=== PATIENT | female | born 1960 | race Caucasian/White ===

== ENCOUNTER 2025-09-05 20:34 | Inpatient (IN) | payer BC, SELFPAY ==
[2025-09-05] VITALS (9 sets, daily range): BP systolic 166–213; BP diastolic 69–111; BMI 21.4
[2025-09-05 14:20] LABS: Hematocrit 37.4 % (37.0-47.0); Hemoglobin 13.7 g/dL (12.0-16.0); Mean Corp Hgb Conc. 36.6 g/dL (33.0-37.0); Mean Corpuscular Volume 90.1 fL (81.0-99.0); Nucleated Red Blood Cells % 0 %; Platelet Count 234 10^3/uL (130-400); Red Cell Dist. Width 11.4 % (11.5-14.5)
[2025-09-05 14:34] LABS: ALT (SGPT) 28 U/L (0-35); AST (SGOT) 28 U/L (14-36); Albumin 4.6 g/dl (3.5-5.0); Alkaline Phosphatase 79 U/L (38-126); Blood Urea Nitrogen 30 mg/dl (7-17); Calcium 9.3 mg/dl (8.4-10.2); Carbon Dioxide 26 mmol/L (22-30); Chloride 97 mmol/L (98-107); Glucose 324 mg/dl (70-99); Lipase 189 U/L (23-300); Potassium 3.1 mmol/L (3.5-5.1); Sodium 134 mmol/L (135-145); Total Protein 7.7 g/dl (6.3-8.2); eGFR 56.81
[2025-09-05 14:48] LABS: Troponin I 0.066 ng/ml
--- NOTE | 2025-09-05 16:26 | ED.GENMED ---
History of Present Illness
General
Chief Complaint: Chest Pain
Source: patient and family
Time Seen by Provider: 09/05/25 16:09
History of Present Illness
History of Present Illness:
This patient is a 64-year-old female presents emergency department with nausea, intractable nonbloody vomiting that started on Monday and continuous. She also has associated dizzy nests with this that is worse when she opens her eyes or moves her
head a certain way. She has difficulty defining what dizziness feels like, but since it began on Monday she has been unable to walk without assistance such as a walker because of this extent of dizziness. She was seen in the emergency department
at [facility] and noted to have elevated blood pressure when the symptoms began on Monday. She was given an antiemetic, her blood pressure gradually came down and she was discharged. She then returned to the hospital on Monday and was admitted
for what the sister describes as 30 hours, given IV fluids, and went home. Her symptoms continued and she saw her primary care doctor on Monday. At that time her blood pressure was lower than normal and it was recommended that she be
hospitalized but she declined. Yesterday she was able to tolerate some liquids and a small piece of pie but continues to have difficulty walking due to dizziness. Today, her nausea and vomiting resumed associated with continued dizziness. Patient
states she has had discomfort across the front of her chest since Monday that is continuous, without exacerbating relieving factors. This pain does not radiate. She has a history of chronic right sided intermittent jaw pain, TMJ workup has been
unremarkable in the past. That is unchanged. Patient denies diaphoresis, numbness, tingling, diplopia, dysarthria, dysphagia, focal weakness, visual changes, or other complaints.
Past History
Past History
ED Past Medical History: Other (Hypertension, diabetes)
ED Past Surgical History: Cholecystectomy and Gynecological
Social History
Tobacco: Non-smoker
Alcohol: Occasional
Drug: None
Living: with family
Phy Exam
Physical Exam
Physical Exam:
GENERAL: Alert , appears very nauseous, resting with eyes closed
EYE: pupils equal and reactive, no photophobia, EOMI, no nystagmus
NECK: Supple, no significant adenopathy.
ENT: o/p clr, mmm.
CARDIAC: Regular rate and rhythm .
LUNGS: Clear breath sounds bilaterally, no acute respiratory distress, no wheezes/rales/rhonchi
ABDOMEN: Soft, without focal tenderness, no r/g, no cvat
NEUROLOGICAL: Alert and oriented, no focal neuro deficits, unable to tolerate Hallpike exam due to severe dizziness with change in head position, [id number] normal, cranial nerves II through XII intact, motor 5 out of 5, sensory intact to light
touch
SKIN: Warm and dry, skin intact.
MUSCULOSKELETAL: No edema, well perfused.
PSYCH: Normal and appropriate interaction.
Scores
Heart Score for Chest Pain Patients
STEMI patient?: Not applicable
Course
Orders/Labs/Results
Orders:
Orders
09/05/25 13:32
Electrocardiogram (*1) Urgent
Reason for Study: Chest Pain
09/05/25 14:01
IV Insert/Care/Rem.- Treatment PRN
09/05/25 14:10
Complete Blood Count/With Diff Urgent
Comprehensive Metabolic Panel Urgent
Lipase Urgent
Troponin I Urgent
09/05/25 Dinner
Regular
At Your Request: Full Participation
09/05/25 16:25
CT Head & Neck Angio W/wo IV Urgent
Comment:
Reason For Exam: severe dizzy/n/v
09/05/25 16:51
Aspirin 325 mg PO NOW STA
Labetalol HCl [Trandate] 10 mg IV NOW STA
09/05/25 16:54
Lorazepam [Ativan] 1 mg IV NOW STA
09/05/25 17:00
0.9% Sodium Chloride 1000 ml [Nss] 1,000 ml IV BOLUS
09/05/25 18:25
Troponin I Urgent
09/05/25 20:05
Admit/Transfer Patient As Directed
Co-Sign Provider:
Level of Care: Inpatient admission
Assign to:: Telemetry
Physician / Group: gerber
Diagnosis: vertigo
Reason for Telemetry: Arrhythmia
Date to Stop Telemetry: 09/08/25
Time to Stop Telemetry: 11:00
Reason for Hospitalization: vertigo
Expected length of stay greater than two midnights?: Yes
ELOS- Estimated Length of Stay in days: 2
I certify the patient meets the requirements for IP care: Yes
PRN Pain Medication Management As Directed
May give lesser potent ordered pain med per pt: Yes
preference::
Protocol:: Medication orders for pain may be administered in a
manner that supports deferring to patient preference
when the pt is:
- Requesting an ordered lesser potent pain medication.
Least to most potent pain medications are defined
as: acetaminophen < NSAID < tramadol < opioids
(morphine, oxycodone, hydromorphone).
- Requesting a lesser dose of the same medication IF
ORDERED.
- Requesting a less intrusive route of administration
if both routes are prescribed by the provider (PO <
IV).
09/05/25 20:06
Code Status As Directed
Resuscitation Status: Full Code
09/05/25 20:09
Amlodipine [Norvasc] 2.5 mg PO STAT STA
09/05/25 20:11
HydrALAZINE [Apresoline] 10 mg IV NOW STA
09/05/25 20:12
Potassium Chloride [KCl] 40 meq PO NOW STA
09/05/25 20:15
CR Chest - 2 Views Urgent
Comment:
Reason For Exam: cough
09/05/25 22:00
Famotidine [Pepcid] 20 mg PO HS
09/05/25 23:48
Troponin I Q6H
Dextrose 50%-Water [Dextrose 50% Syringe] 12.5 grams IV [id number] PRN
Glucagon [GlucaGen] 1 mg IM PRN PRN
Ondansetron Injectable [Zofran] 4 mg IV Q6HPRN PRN
09/05/25 23:48
Hemoglobin A1c [Glycohemoglobin (HgbA1c)] Routine
Lipid Profile [Cardiovascular Evaluation] Routine
Activity As Directed
Activity Level: As Tolerated
Bedside Glucose Monitoring As Directed
Frequency: AC&HS
Additional Instructions:: Change to q6h if pt on TPN, tube feeding or not eating
Neurological Checks As Directed
Frequency: Per unit guidelines
Pneumatic Compression Sleeves As Directed
Type: Knee high
Vital Signs As Directed
Frequency: Per unit guidelines
DX Deep Vein Thrombosis Video Routine
09/05/25 23:52
Cyclobenzaprine HCl [Flexeril] 5 mg PO TIDPRN PRN
09/06/25 05:50
Comprehensive Metabolic Panel IN AM
Troponin I Q6H
09/06/25 05:51
Complete Blood Count/With Diff IN AM
09/06/25 07:30
Insulin Aspart Corrective Low [Novolog Flexpen-Low Resistance] See Protocol SC AC
09/06/25 08:00
Amlodipine [Norvasc] 2.5 mg PO DAILY
Aspirin Chewable [Low Strength Aspirin] 81 mg PO DAILY
Bupropion(24Hr)Extended Releas [WELLBUTRIN XL (24 hour extended release)] 300 mg PO DAILY
Pantoprazole [Protonix] 20 mg PO DAILY
Rosuvastatin Calcium [Crestor] 5 mg PO DAILY
09/06/25 13:04
Troponin I Q6H
09/08/25 11:00
DC Protocol for Telemetry ONCE
Abnormal Lab Results
09/05/25 09/05/25
14:10 18:25
RBC 4.15 L 10^6/uL
(4.20-5.40)
MCH 33.0 H pg
(27.0-31.0)
RDW 11.4 L %
(11.5-14.5)
MPV 10.5 H fL
(7.4-10.4)
Absolute Neuts (auto) 8.6 H 10^3/uL
(1.4-6.5)
Absolute Lymphs (auto) 0.7 L 10^3/uL
(1.2-3.4)
Neutrophils % 87.8 H %
(42.2-75.2)
Lymphocytes % 7.3 L %
(20.5-51.1)
Sodium 134 L mmol/L
(135-145)
Potassium 3.1 L mmol/L
(3.5-5.1)
Chloride 97 L mmol/L
(98-107)
BUN 30 H mg/dl
(7-17)
Creatinine 1.1 H mg/dL
(0.6-1.0)
Glucose 324 H mg/dl
(70-99)
Troponin I 0.066 H* ng/ml 0.062 H* ng/ml
09/05/25 14:10
09/05/25 14:10
Vital Signs
Initial and Last Documented VS:
Initial Vital Signs
Temp Pulse Resp BP Pulse Ox
98.5 F 96 18 213/111 100
09/05/25 13:54 09/05/25 13:54 09/05/25 13:54 09/05/25 13:54 09/05/25 13:54
Last Documented Vital Signs
Temp Pulse Resp BP Pulse Ox
98.3 F 79 18 148/72 95
09/08/25 11:30 09/08/25 11:30 09/08/25 11:30 09/08/25 11:30 09/08/25 11:30
*Pulse Oximetry
SaO2: 100
Oxygen Mode of Delivery: Room air
Patient hypoxic: no
*Critical Care Note
Total Time (30-74mins, 75-104mins- exclusive of procedures): 30
Update Note
Update Note:
Patient presents to the Emergency Department with
Number and Complexity of Problems Addressed at the Encounter
� Chronic conditions affecting care:
� Acute Exacerbation and/or Progression of Chronic Illness:
� Differential Diagnosis includes:
Amount and/or Complexity of Data to be Reviewed and Analyzed
� I performed an independent evaluation of and my interpretation is:
EKG:read by me, nsr, nonspec st/t abnl, no acute ischemia
CT:No evidence of acute intracranial abnormality.
No evidence for hemodynamically significant narrowing involving the common carotid arteries, carotid bulbs, or proximal internal carotid arteries bilaterally.
Focal calcification at the junction of the left cavernous ICA and the supraclinoid ICA, and is suspicious for focal greater than 50% diameter reduction.
Focal calcification at the junction of the right cavernous ICA and the supraclinoid right ICA, likely less than 50% diameter reduction.
Focal calcification involving the V4 portion of the left vertebral artery and appears to result in diameter reduction of approximately 50%, and could represent a hemodynamically significant stenosis.
If there are persistent clinical symptoms, consideration for further evaluation with MRI of the brain.
Family Protection Specialist reconstructed images have been sent to the PACS system.
Percent stenosis is calculated using NASCET criteria.
If the patient has emphysema, patient should be assessed for an annual low dose lung cancer CT program, as pulmonary emphysema is an independent risk factor for lung cancer.
Xrays:
Laboratory Studies:mild hypoK, mild renal insuffic/prerenal azotemia, nonspec trop elevation.
Other:
� Review of other/old records reveals:
� Clinical information was obtained by an independent historian:sister and father who are at bedside, much of hx via sister given pt's n/v initially
� Prescriptions/Medications Considered but not given:
� Further testing considered but not performed:
Risk of Complications and/or Morbidity or Mortality of Patient Management
� Social determinants of health affecting care:
� Discussion with other providers (PCP, Hospitalists, Consultants, etc):
� Escalation of care including admission/observation vs risk of discharge considered:457 pm CP resolved. Getting meds now for sxs, bp noted, labetalol ordered, will follow closely, ct pending.
521 repeat sbp 184, pt resting comfortably, no cp, no vomiting. We are calling ct to expedite
722 pm multiple reassessments, no cp, no nnew sxs. she feels much better, no further v. Concern regarding dizzy/n/v and consideration for post circ process...CT suggests V4 LVA stenosis (not amenable to acute itnervention, NIH=0), associ with
hypertensive urgency and nonspec flat troponin. Case d/w Dr Pulido for admission, tele monitoring, likely MR, etc.
ED Attending Note
-
Portions of this chart may have been created with voice recognition software.� Occasional wrong word or��sound alike� substitutions may have occurred due to the inherent limitations of voice recognition software.
Discharge Plan
Departure
Patient Disposition: Admit
Date of Disposition: 09/05/25
Time of Disposition: 19:23
Admit to: Telemetry
Admit to doctor: lamont
Presentation/result/management discussed w/ accepting MD/DO: Hospitalist
Condition: Fair
Discharge Problem:
Hypertensive urgency, Vertigo
Interventions
Interventions:
*Risk Screen - Suicide Last Done: 09/05/25 13:54
*General Assessment Last Done: 09/05/25 13:54
*Neglect/Abuse Screening Last Done: 09/05/25 16:09
*ED- Fall Risk Assessment Last Done: 09/05/25 16:10
*ED COVID-19 Vaccine History Last Done: 09/05/25 16:10
*ED Influenza Vaccine History Last Done: 09/05/25 16:27
*Nursing Disposition Last Done: 09/05/25 23:47
TR-Bnuucl-Ifavdxykaf Assessment Last Done: 09/05/25 16:17
ED- Cardiac Assessment Last Done: 09/05/25 16:16
Discharge Date and Time
Discharge Date/Time: 09/05/25 23:48
[2025-09-05] MEDS: ATIVAN 1 MG IV (16:57)
[2025-09-05] MEDS: TRANDATE 10 MG IV (16:57)
[2025-09-05] MEDS: NSS 1000 IV (16:58)
[2025-09-05] MEDS: ASPIRIN 325 MG PO (17:27)
[2025-09-05 19:01] LABS: Troponin I 0.062 ng/ml
--- NOTE | 2025-09-05 20:13 | HPS.HSE ---
Addendum entered and electronically signed by Yanet Frank MD 09/05/25 20:17:
Check chest x-ray to rule out aspiration due to ongoing dry cough and shortness of breath.
Original Note:
Family Physician
-
Family Physician: INTERVIEWE UNKNOWN - PT NOT
Chief Complaint
-
vertigo
History of Present Illness
64-year-old female past medical history of hypertension, diabetes, anxiety/depression, GERD, presenting with nausea, intractable nonbloody vomiting that started 6 days ago but was ongoing intermittently for the past year even before that. She has
also been dizzy/vertigo starting 6 days ago which is worse when she opens her eyes or moves her head a certain way. She was seen in the emergency room at [place] was noted to have elevated blood pressure and the when the symptoms started 6 days
ago. She was given antiemetic and her blood pressure gradually came down and she was discharged. She did not return to the hospital in the next day and was admitted for 30 hours given IV fluids and was discharged. She saw the primary care
physician 3 days later. Her blood pressure at that time was very low at that time and she was recommended to be hospitalized but she declined. Yesterday she was able to tolerate some liquids and small piece of pie but continues to have difficulty
with walking due to dizziness. Today her nausea and vomiting returned with continued dizziness. Denies ringing in the ears or hearing loss. She has also been having headache.
She has discomfort across the front of her chest described as pressure for the past 6 days that is continuous and worse with cough or vomiting. Pain radiates up to her jaw. Pain does not radiate anywhere. She also has cough that is dry. Has not
been eating much due to vomiting. Also having abdominal pain.
He has a history of chronic right-sided intermittent jaw pain, she has had unremarkable TMJ workup in the past. She denies swelling, numbness tingling, visual disturbances, difficulty speaking, difficulty swallowing, visual changes.
Yesterday she was noted to be staring off and unresponsive. No facial droop or slurred speech at any time.
He denies smoking or alcohol or drugs.
She does have family members with heart disease.
Medical History
Past Medical History
Past Medical History: Reports Other (hypertension, diabetes, anxiety/depression, GERD)
Past Surgical History: Reports None
Social History
Tobacco: Non-smoker
Alcohol: None
Drug: None
Family History
Family History: Not pertinent
Allergies / Home Medications
Allergies reflects when Allergies were last updated in [employer].
Home Medications with original date entered in [employer]
Allergy/Medication List:
Allergies
Allergy/AdvReac Type Severity Reaction Status Date / Time
No Known Allergies Allergy Verified 09/05/25 16:36
Home Medications
amlodipine 2.5 mg tablet 2.5 mg PO DAILY 09/05/25
bupropion HCl 300 mg 24 hr tablet, extended release 300 mg PO DAILY 09/05/25
cyclobenzaprine 5 mg tablet 5 mg PO TIDPRN PRN muscle spasm 09/05/25
famotidine 20 mg tablet 20 mg PO HS 09/05/25
lisinopril 5 mg tablet 5 mg PO DAILY 09/05/25
ondansetron 4 mg disintegrating tablet 4 mg PO Q6H PRN nausea 09/05/25
pantoprazole 20 mg tablet,delayed release 20 mg PO DAILY 09/05/25
rosuvastatin 5 mg tablet (Crestor) 5 mg PO DAILY 09/05/25
tirzepatide 10 mg/0.5 mL subcutaneous pen injector (Mounjaro) 10 mg SC WE@0800 09/05/25
Review of Systems
-
History Source: Patient
A 12 point ROS was completed and negative except as noted: Yes
Constitutional: Reports No Symptoms
EENT: Reports No Symptoms
Respiratory: Reports No Symptoms
Cardiac: Reports See HPI
Abdomen/GI: Reports No Symptoms
: Reports No Symptoms
Musculoskeletal: Reports No Symptoms
Skin: Reports No Symptoms
Neurological: Reports See HPI
Endocrine: Reports No Symptoms
Hematologic/Lymphatic: Reports No Symptoms
Psych: Reports No Symptoms
Physical Exam
Vital Signs
Vital Signs
Temp Pulse Resp BP Pulse Ox
97.6 F 82 16 190/86 100
09/05/25 19:50 09/05/25 19:00 09/05/25 19:00 09/05/25 19:00 09/05/25 16:45
Physical Exam
General: Well Developed, Well Nourished and No Apparent Distress
HEENT: NormoCephalic, Moist mucous membranes and Atraumatic
Respiratory: Clear
Cardiac: S1/S2 and Regular Rhythm; No Murmur or Rub
GI: Soft, Non Tender, Non Distended and Normal Bowel Sounds; No Organomegaly
Rectal: Deferred by Provider
Musculoskeletal: No Clubbing, No Cyanosis and No Edema
Skin: No Rash
Neuro: Nonfocal/grossly intact
Laboratory Results
-
09/05/25 14:10
09/05/25 14:10
Laboratory Results
Total Bilirubin 0.9 mg/dl (0.2-1.3) 09/05/25 14:10
AST 28 U/L (14-36) 09/05/25 14:10
ALT 28 U/L (0-35) 09/05/25 14:10
Alkaline Phosphatase 79 U/L (38-126) 09/05/25 14:10
Troponin I 0.062 ng/ml H* 09/05/25 18:25
Lipase 189 U/L (23-300) 09/05/25 14:10
Data Reviewed
-
Lab Data: Labs Reviewed by me
Old Records: Reviewed
Impression/Plan
-
IMPRESSION:
PLAN:
# Vertigo associate with nausea/vomiting concerning for CVA
- CTA head and neck shows focal calcification at the junction of the right cavernous ICA and supraclinoid right ICA less than 50% diameter reduction, focal calcification following V4 portion of the left vertebral artery and appears to result in
diameter reduction of approximately 50% which could represent hemodynamically significant stenosis
- Check MRI brain
-Telemetry
-Out of window for TNK or any intervention
-Aspirin started
-Check A1c and lipid panel
- Neurology consulted
# Hypertensive emergency
# Essential hypertension
- IV labetalol without improvement in blood pressure, continue and add as needed hydralazine as well
- Hold lisinopril for now given recent hypotension
- Resume amlodipine will give dose now
# Chest pressure likely secondary to hypertension
# Nonischemic myocardial injury secondary to hypertension versus rule out ACS
- Troponin 0.066, decreased to 0.062
- EKG shows normal sinus rhythm, ST depressions in leads V3
- Check echo.
- Consider cardiology if worsening troponins
# Hyperglycemia
Type 2 diabetes
- On Mounjaro
- Check A1c
- Insulin sliding scale
# Hypokalemia secondary to vomiting
- Replete potassium
# KIRSTIE versus CKD
- No prior renal function for comparison
- Hold lisinopril and monitor
Anxiety/depression
- Continue bupropion
GERD
- Continue famotidine, pantoprazole
Full code
DVT prophylaxis�SCDs
Regular diet
[2025-09-05] MEDS: NORVASC 2.5 MG PO (20:50)
[2025-09-05] MEDS: KCL 40 MEQ PO (20:53)
[2025-09-05] MEDS: APRESOLINE 10 MG IV (20:55)
[2025-09-05] MEDS: PEPCID 20 MG PO (22:36)
[2025-09-05] MEDS: FLUSH (NSS) 1 FLUSH IV (22:38)
[2025-09-06] VITALS (7 sets, daily range): BP systolic 94–124; BP diastolic 53–64; BMI 22.7
[2025-09-06] MEDS: ZOFRAN 4 MG IV
[2025-09-06 00:11] LABS: Glucose - Point of Care 234 mg/dl (70-99)
[2025-09-06 00:47] LABS: HDL Cholesterol 50 mg/dl; LDL Cholesterol, Calculated 67 mg/dl; Very Low Density Lipoprotein 17 mg/dl (0-30)
[2025-09-06 00:51] LABS: Troponin I 0.076 ng/ml
[2025-09-06 07:12] LABS: Hematocrit 36.7 % (37.0-47.0); Hemoglobin 12.9 g/dL (12.0-16.0); Mean Corp Hgb Conc. 35.1 g/dL (33.0-37.0); Mean Corpuscular Volume 90.6 fL (81.0-99.0); Nucleated Red Blood Cells % 0 %; Platelet Count 258 10^3/uL (130-400); Red Cell Dist. Width 11.6 % (11.5-14.5)
[2025-09-06 07:43] LABS: Troponin I 0.083 ng/ml
[2025-09-06 07:45] LABS: ALT (SGPT) 24 U/L (0-35); AST (SGOT) 22 U/L (14-36); Albumin 4.1 g/dl (3.5-5.0); Alkaline Phosphatase 67 U/L (38-126); Blood Urea Nitrogen 26 mg/dl (7-17); Calcium 9.0 mg/dl (8.4-10.2); Carbon Dioxide 33 mmol/L (22-30); Chloride 96 mmol/L (98-107); Estimated Creatinine Clearance 50 ml/min; Glucose 144 mg/dl (70-99); Potassium 3.2 mmol/L (3.5-5.1); Sodium 134 mmol/L (135-145); Total Protein 7.0 g/dl (6.3-8.2); eGFR 56.81
[2025-09-06 08:38] LABS: Glucose - Point of Care 139 mg/dl (70-99)
--- NOTE | 2025-09-06 08:43 | CON.NEURO4 ---
Consultation - Neurology 4
-
CONSULTING PHYSICIAN: Dr. Fabio Waldron
REFERRING PHYSICIAN: Dr. Nena Patel
DICTATED BY: Dr. Fabio Waldron
DATE/TIME OF REQUEST: 09/06/2025
DATE/TIME OF CONSULTATION: 09/06/2025
Reason for Consultation: Vertigo
ASSESSMENT AND PLAN:
The patient is a 64 years old female with a past medical history of hypertension, diabetes mellitus, anxiety, depression, GERD, who presented with complaint of nausea and intractable vomiting that started about 6 days ago prior to admission, but
according the patient it has been going on intermittently for about a year. The patient says that 6 days prior to admission her symptoms of dizziness which she explains as a 'spinning sensation', became worse and symptoms are precipitated by
movement of her head. The patient was seen in the ER at [place] about 6 days ago when the symptoms started, and she was noted to have elevated blood pressure. She was given antiemetic and her blood pressure gradually came down and she was
discharged. The patient symptoms of nausea vomiting and 'spinning sensation' became worse on 09/05/2025 and therefore she presented to the hospital.
. CT head does not show acute intracranial abnormality.
. CTA head/neck does not show a large vessel occlusion.
. MRI brain does not show an acute infarct. There is a moderate-sized central disc herniation at C3/C4 causing mild spinal cord compression and central canal stenosis. There is a small central disc herniation at C4/C5 causing mild spinal cord
compression and central canal stenosis.
The patient presented with a history of dizziness which she explains is like' spinning sensation' along with nausea and vomiting. The patient states that her symptoms have been going on for about a year. The patient symptoms got worse in last 6
days prior to admission therefore she presented to the hospital. MRI brain does not show an acute infarct, however there is a moderate-sized central disc herniation at C3/C4 causing mild spinal cord compression and central canal stenosis along with
a small central disc herniation at C4/C5 causing mild spinal cord compression and central canal stenosis.
Can try meclizine 12.5 mg 3 times daily as needed for vertigo.
. Recommend MRI of the cervical spine to rule out cord compression.
Discussed with Dr. Nena Patel.
History of Present Illness:
The patient is a 64 years old female with a past medical history of hypertension, diabetes mellitus, anxiety, depression, GERD, who presented with complaint of nausea and intractable vomiting that started about 6 days ago prior to admission, but
according the patient it has been going on intermittently for about a year. The patient says that 6 days prior to admission her symptoms of dizziness which she explains as a 'spinning sensation', became worse and symptoms are precipitated by
movement of her head. T
Past Medical History:
Hypertension
Diabetes mellitus
Anxiety
Depression
GERD
Review of Systems:
The 10 point review systems are negative aside from as given the above history of present illness.
Neurologic Examination:
Alert and oriented x 3
Speech is clear
Cranial nerves II to XII grossly intact
The motor strength is grossly 5/5 bilaterally
Sensations are grossly intact
The cerebellar examination does not show limb ataxia
Vital Signs and Labs
-
Vital Signs and Labs:
Vital Signs
Temp Pulse Resp BP Pulse Ox
36.8 C 91 18 119/64 100
09/06/25 03:45 09/06/25 03:45 09/06/25 03:45 09/06/25 03:45 09/06/25 03:45
Lab Results
09/06/25 05:51
09/06/25 05:50
Sodium 134 mmol/L (135-145) L 09/06/25 05:50
Potassium 3.2 mmol/L (3.5-5.1) L 09/06/25 05:50
BUN 26 mg/dl (7-17) H 09/06/25 05:50
Glucose 144 mg/dl (70-99) H 09/06/25 05:50
Calcium 9.0 mg/dl (8.4-10.2) 09/06/25 05:50
LDL Cholesterol, Calc 67 mg/dl 09/06/25 00:10
Medications
-
Active Medications
Generic Name Dose Route Start Last Admin
Trade Name Freq PRN Reason Stop Dose Admin
Amlodipine Besylate 2.5 mg 09/06/25 08:00
Amlodipine 2.5 Mg Tablet PO 10/04/25 07:59
DAILY NARGIS
Aspirin 81 mg 09/06/25 08:00
Aspirin 81 Mg Chewable Tablet PO 10/04/25 07:59
DAILY NARGIS
Bupropion HCl 300 mg 09/06/25 08:00
Bupropion (24hr) Extended Release 300 Mg Tablet PO 10/04/25 07:59
DAILY NARGIS
Cyclobenzaprine HCl 5 mg 09/05/25 23:52
Cyclobenzaprine 10 Mg Tablet PO 10/03/25 23:51
TIDPRN PRN
muscle spasm
Dextrose 12.5 grams 09/05/25 23:48
Dextrose 50% (0.5 Grams/Ml) 50 Ml Syringe IV 10/03/25 23:47
[id number] PRN
hypoglycemia
Protocol
Famotidine 20 mg 09/05/25 22:00 09/05/25 22:36
Famotidine 20 Mg Tablet PO 10/03/25 21:59 20 mg
HS NARGIS Administration
Glucagon 1 mg 09/05/25 23:48
Glucagon 1 Mg Vial IM 10/03/25 23:47
PRN PRN
hypoglycemia
Protocol
Insulin Aspart 0 units 09/06/25 07:30
Insulin Aspart Low Resistance 300 Units/3 Ml Pen.Injctr SC 10/04/25 07:29
AC NARGIS
Protocol
Ondansetron HCl 4 mg 09/05/25 23:48 09/06/25 00:00
Ondansetron 4 Mg/2 Ml Vial IV 10/03/25 23:47 4 mg
Q6HPRN PRN Administration
nausea and vomiting
Pantoprazole Sodium 20 mg 09/06/25 08:00
Pantoprazole 20 Mg Delayed Release Tablet PO 10/04/25 07:59
DAILY NARGIS
Rosuvastatin Calcium 5 mg 09/06/25 08:00
Rosuvastatin (Crestor) 5 Mg Tablet PO 10/04/25 07:59
DAILY NARGIS
Sodium Chloride 0 flush 09/05/25 22:00 09/05/25 22:38
Sodium Chloride 0.9% (Flush) Syringe IV 10/03/25 21:59 1 flush
PER PROTOCOL NARGIS Administration
Home Medications
�Medication �Instructions �Recorded
amlodipine 2.5 mg tablet 2.5 mg PO DAILY 09/05/25
bupropion HCl 300 mg 24 hr tablet, 300 mg PO DAILY 09/05/25
extended release
cyclobenzaprine 5 mg tablet 5 mg PO TIDPRN PRN muscle spasm 09/05/25
famotidine 20 mg tablet 20 mg PO HS 09/05/25
lisinopril 5 mg tablet 5 mg PO DAILY 09/05/25
ondansetron 4 mg disintegrating 4 mg PO Q6H PRN nausea 09/05/25
tablet
pantoprazole 20 mg tablet,delayed 20 mg PO DAILY 09/05/25
release
rosuvastatin 5 mg tablet (Crestor) 5 mg PO DAILY 09/05/25
tirzepatide 10 mg/0.5 mL 10 mg SC WE@0800 09/05/25
subcutaneous pen injector
(Mounjaro)
[2025-09-06] MEDS: NOVOLOG FLEXPEN-LOW RESISTANCE SC (08:50)
[2025-09-06] MEDS: PROTONIX 20 MG PO (08:55)
[2025-09-06] MEDS: NORVASC 2.5 MG PO (08:55)
[2025-09-06] MEDS: LOW STRENGTH ASPIRIN 81 MG PO (08:55)
[2025-09-06] MEDS: WELLBUTRIN XL (24 hour extended release) 300 MG PO (08:55)
[2025-09-06] MEDS: CRESTOR 5 MG PO (08:55)
[2025-09-06] MEDS: KCL 40 MEQ PO (08:56)
[2025-09-06 09:22] LABS: Glycohemoglobin (HgbA1c) 6.0 % (4.0-5.9)
--- NOTE | 2025-09-06 09:44 | W.PN.HOSP.TC ---
Today's Communication/Plan
-
see A/P
Assessment / Plan
Assessment / Plan
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
She was seen in the emergency room at [place] and was noted to have elevated blood pressure. She was given antiemetic and her blood pressure gradually came down and she was discharged.
She saw her PCP 3 days later. Her blood pressure at that time was very low and she was recommended to be hospitalized but she declined.
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
Her nausea and vomiting returned with continued dizziness.
Denies ringing in the ears or hearing loss. She has also been having headache.
She has discomfort across the front of her chest described as pressure for the past 6 days that is continuous and worse with cough or vomiting. Pain radiates up to her jaw. She also has cough that is dry. Has not been eating much due to vomiting.
Also having abdominal pain.
She has history of chronic right-sided intermittent jaw pain, she has had unremarkable TMJ workup in the past. She denies swelling, numbness tingling, visual disturbances, difficulty speaking, difficulty swallowing, visual changes.
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 No facial droop or slurred speech at any time.
Denies smoking or alcohol or drugs.
She does have family members with heart disease.
A/P:
# Nausea/vomiting with vertigo, concerning for CVA
CTA head and neck shows focal calcification at the junction of the right cavernous ICA and supraclinoid right ICA less than 50% diameter reduction, focal calcification following V4 portion of the left vertebral artery and appears to result in
diameter reduction of approximately 50% which could represent hemodynamically significant stenosis
Check MRI brain
Check echo
Cont telemetry
Out of window for TNK or any intervention
Aspirin started
A1c 6.0%,
LDL 67- cont Crestor
Neurology consulted
# Hypertensive emergency
# Essential hypertension
s/p IV labetalol, hydralazine as well
Cont Norvasc with holding parameter
Hold ANODE MACHINE OPERATOR lisinopril for now
# Chest pressure likely secondary to hypertension, Chest pressure has resolved
# Nonischemic myocardial injury secondary to hypertension versus rule out ACS
Troponin 0.066 -> 0.083, trend until peak
EKG shows normal sinus rhythm, ST depressions in leads V3
Check echo.
Consider cardiology
# Type 2 diabetes
On Mounjaro
A1c 6.0%,
Insulin sliding scale
# Hypokalemia secondary to vomiting
Replete potassium
# KRISTIE versus CKD
No prior renal function for comparison
Hold lisinopril and monitor
SCr at 1.1 today
# Anxiety/depression
Continue bupropion
# GERD
Continue famotidine, pantoprazole
# Incidental finding of thyroid nodule
On CT: there is a 1 cm calcification within the posterior right lobe of the thyroid gland. Within the anterior right lobe of the thyroid, there is a subtle 6 mm low-density lesion. No significant abnormality of the left lobe of the thyroid gland.
Based on recommendations from the [employer], in a 64-year-old patient with incidentally detected thyroid nodules, no further imaging follow-up is recommended based on the size of these nodules
Full code
DVT prophylaxis�SCDs
PT eval
total time 51 min
Anticipated Discharge: 24 - 48 hours
Subjective/Interval History
-
Date of Service: September 06, 2025
Objective Data
-
Labs:
Laboratory Results
09/06/25 09/06/25
05:50 05:51
WBC 14.0 H
Hgb 12.9
Hct 36.7 L
Plt Count 258
Sodium 134 L
Potassium 3.2 L
Chloride 96 L
Carbon Dioxide 33 H
BUN 26 H
Creatinine 1.1 H
Glucose 144 H
Calcium 9.0
Total Bilirubin 0.6
AST 22
ALT 24
Alkaline Phosphatase 67
Vital Signs:
Vital Signs
Temp Pulse Resp BP Pulse Ox
36.7 C 90 16 108/58 100
09/06/25 07:49 09/06/25 07:49 09/06/25 07:49 09/06/25 08:55 09/06/25 07:49
I&O
09/05/25 09/06/25 09/07/25
06:59 06:59 06:59
Intake Total 480 / 480
Output Total 200 / 200
Balance 280 / 280
Review of Systems
-
History Source: Patient
Cardiac: Denies Chest Pain (resolved )
Neuro: Reports Dizzy (vertigo)
Physical Exam
-
General: Well Developed, Well Nourished, No Apparent Distress, Comfortable and Conversant; Negative Respiratory Distress
HEENT: Normocephalic, Atraumatic, Nose Appears Normal and Ears Appear Normal; Negative Oxygen
Respiratory: Clear to Auscultation and Non Labored Respirations; Negative Accessory Resp Muscle Use
Cardiac: Regular Rhythm and S1/S2
GI: Soft, Nontender, Nondistended and Normal Bowel Sounds
Skin: Warm and Dry
Neuro: Awake and Alert
Psych: Calm and Intact Judgement/Insight
Data Reviewed
-
CT Scan: Report Reviewed by me
Labs: Labs Reviewed by me
[2025-09-06 12:45] LABS: Glucose - Point of Care 262 mg/dl (70-99)
[2025-09-06 13:48] LABS: Troponin I 0.066 ng/ml
[2025-09-06] MEDS: NOVOLOG FLEXPEN-LOW RESISTANCE 3 UNITS SC (13:52)
[2025-09-06 16:52] LABS: Glucose - Point of Care 180 mg/dl (70-99)
[2025-09-06] MEDS: NOVOLOG FLEXPEN-LOW RESISTANCE 1 UNITS SC (17:15)
[2025-09-06 22:26] LABS: Glucose - Point of Care 204 mg/dl (70-99)
[2025-09-06] MEDS: PEPCID 20 MG PO (22:34)
[2025-09-07] VITALS (7 sets, daily range): BP systolic 98–136; BP diastolic 55–68
[2025-09-07 07:58] LABS: Hematocrit 33.0 % (37.0-47.0); Hemoglobin 11.5 g/dL (12.0-16.0); Mean Corp Hgb Conc. 34.8 g/dL (33.0-37.0); Mean Corpuscular Volume 91.9 fL (81.0-99.0); Platelet Count 208 10^3/uL (130-400); Red Cell Dist. Width 11.6 % (11.5-14.5)
[2025-09-07 08:17] LABS: Glucose - Point of Care 147 mg/dl (70-99)
[2025-09-07 08:24] LABS: Troponin I 0.028 ng/ml
[2025-09-07] MEDS: NOVOLOG FLEXPEN-LOW RESISTANCE SC (08:25)
[2025-09-07 08:26] LABS: Blood Urea Nitrogen 25 mg/dl (7-17); Calcium 9.3 mg/dl (8.4-10.2); Carbon Dioxide 32 mmol/L (22-30); Chloride 100 mmol/L (98-107); Estimated Creatinine Clearance 50 ml/min; Glucose 138 mg/dl (70-99); Magnesium 2.0 mg/dl (1.6-2.3); Potassium 3.4 mmol/L (3.5-5.1); Sodium 134 mmol/L (135-145); eGFR 56.81
--- NOTE | 2025-09-07 09:11 | W.PN.HOSP.TC ---
Today's Communication/Plan
-
see A/P
Assessment / Plan
Assessment / Plan
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
She was seen in the emergency room at [place] and was noted to have elevated blood pressure. She was given antiemetic and her blood pressure gradually came down and she was discharged.
She saw her PCP 3 days later. Her blood pressure at that time was very low and she was recommended to be hospitalized but she declined.
The day CAFETERIA ATTENDANT, she was able to tolerate some liquids and small piece of pie but continues to have difficulty with walking due to dizziness.
Her nausea and vomiting returned with continued dizziness.
Denies ringing in the ears or hearing loss. She has also been having headache.
She has discomfort across the front of her chest described as pressure for the past 6 days that is continuous and worse with cough or vomiting. Pain radiates up to her jaw. She also has cough that is dry. Has not been eating much due to vomiting.
Also having abdominal pain.
She has history of chronic right-sided intermittent jaw pain, she has had unremarkable TMJ workup in the past. She denies swelling, numbness tingling, visual disturbances, difficulty speaking, difficulty swallowing, visual changes.
The day CAFETERIA ATTENDANT she was noted to be staring off and unresponsive. No facial droop or slurred speech at any time.
Denies smoking or alcohol or drugs.
She does have family members with heart disease.
A/P:
# Nausea/vomiting with vertigo (likely peripheral vertigo)
CTA head and neck shows focal calcification at the junction of the right cavernous ICA and supraclinoid right ICA less than 50% diameter reduction, focal calcification following V4 portion of the left vertebral artery and appears to result in
diameter reduction of approximately 50% which could represent hemodynamically significant stenosis
MRI brain no evidence for acute infarct. There is a moderate-sized central disc herniation at C3/C4 causing mild spinal cord compression and central canal stenosis. There is a small central disc herniation at C4/C5 causing mild spinal cord
compression and central canal stenosis.
PT for vestibular therapy
Aspirin was started, can continue
A1c 6.0%,
LDL 67- cont Crestor
Neurology on board, [facility] MRI cervical spine to rule out cord compression.
MRI cervical spine ordered, follow up
# Hypertensive emergency
# Essential hypertension
s/p IV labetalol, hydralazine as well
Cont CAFETERIA ATTENDANT Norvasc with holding parameter
Hold CAFETERIA ATTENDANT lisinopril for now
BP stable
# Chest pressure likely secondary to hypertension, Chest pressure has resolved
# Nonischemic myocardial injury secondary to hypertension
Troponin 0.083 -> 0.028,
EKG shows normal sinus rhythm, ST depressions in leads V3
Check echo.
Consider cardiology
# Type 2 diabetes
On Mounjaro
A1c 6.0%,
Insulin sliding scale
# Hypokalemia secondary to vomiting
Replete potassium
# Likely CKD stage 3
No prior renal function for comparison
Hold lisinopril and monitor
SCr remain at 1.1 today
# Anxiety/depression
Continue bupropion
# GERD
Continue famotidine, pantoprazole
# Incidental finding of thyroid nodule
On CT: there is a 1 cm calcification within the posterior right lobe of the thyroid gland. Within the anterior right lobe of the thyroid, there is a subtle 6 mm low-density lesion. No significant abnormality of the left lobe of the thyroid gland.
Based on recommendations from the [employer], in a 64-year-old patient with incidentally detected thyroid nodules, no further imaging follow-up is recommended based on the size of these nodules
Full code
DVT prophylaxis�SCDs
Anticipated Discharge: 24 - 48 hours
Subjective/Interval History
-
Date of Service: September 07, 2025
Objective Data
-
Labs:
Laboratory Results
09/07/25
07:46
WBC 10.9 H
Hgb 11.5 L
Hct 33.0 L
Plt Count 208
Sodium 134 L
Potassium 3.4 L
Chloride 100
Carbon Dioxide 32 H
BUN 25 H
Creatinine 1.1 H
Glucose 138 H
Calcium 9.3
Vital Signs:
Vital Signs
Temp Pulse Resp BP Pulse Ox
36.9 C 83 16 113/59 100
09/07/25 07:25 09/07/25 07:25 09/07/25 07:25 09/07/25 07:25 09/07/25 07:25
I&O
09/06/25 09/07/25 09/08/25
06:59 06:59 06:59
Intake Total 1440 / 1440
Output Total 200 / 200
Balance 1240 / 1240
Review of Systems
-
History Source: Patient
Cardiac: Denies Chest Pain (resolved )
Neuro: Reports Dizzy (vertigo with changing head position too quickly)
Physical Exam
-
General: Well Developed, Well Nourished, No Apparent Distress, Comfortable and Conversant; Negative Respiratory Distress
HEENT: Normocephalic, Atraumatic, Nose Appears Normal and Ears Appear Normal; Negative Oxygen
Respiratory: Clear to Auscultation and Non Labored Respirations; Negative Accessory Resp Muscle Use
Cardiac: Regular Rhythm and S1/S2
GI: Soft, Nontender, Nondistended and Normal Bowel Sounds
Skin: Warm and Dry
Neuro: Awake and Alert
Psych: Calm and Intact Judgement/Insight
Data Reviewed
-
CT Scan: Report Reviewed by me
MRI: Report Reviewed by me and Discussed with Patient
Labs: Labs Reviewed by me
[2025-09-07] MEDS: PROTONIX 20 MG PO (09:44)
[2025-09-07] MEDS: LOW STRENGTH ASPIRIN 81 MG PO (09:44)
[2025-09-07] MEDS: WELLBUTRIN XL (24 hour extended release) 300 MG PO (09:44)
[2025-09-07] MEDS: CRESTOR 5 MG PO (09:44)
[2025-09-07] MEDS: KCL 40 MEQ PO (09:44)
[2025-09-07] MEDS: NORVASC PO (09:46)
[2025-09-07] MEDS: ZOFRAN 4 MG IV (11:24)
[2025-09-07 11:59] LABS: Glucose - Point of Care 202 mg/dl (70-99)
[2025-09-07] MEDS: NOVOLOG FLEXPEN-LOW RESISTANCE 2 UNITS SC (13:03)
[2025-09-07] MEDS: TYLENOL 650 MG PO (14:18)
[2025-09-07 16:17] LABS: Glucose - Point of Care 168 mg/dl (70-99)
[2025-09-07] MEDS: NOVOLOG FLEXPEN-LOW RESISTANCE 1 UNITS SC (16:49)
--- NOTE | 2025-09-07 17:31 | W.PN.NEURO.1 ---
Today's Communication / Plan
-
. MRI brain does not show an acute infarct. There is a moderate-sized central disc herniation at C3/C4 causing mild spinal cord compression and central canal stenosis. There is a small central disc herniation at C4/C5 causing mild spinal cord
compression and central canal stenosis.
. MRI of the cervical spine: Changes of degenerative disc disease, mainly from C3-4 through C6-7. At C4-5, slight compression of the central anterior margin of the spinal cord. No significant overall central canal stenosis is seen throughout the
cervical spine.
The patient presented with a history of dizziness which she explains is like a ' spinning sensation' along with nausea and vomiting. The patient states that her symptoms have been going on for about a year. The patient symptoms got worse in last 6
days prior to admission therefore she presented to the hospital. The symptoms are aggravated by head movement.
TODAY, the patient still complains of dizziness especially on movement of the head.
Can try meclizine 12.5 mg 3 times daily as needed for vertigo.
Check orthostatic vitals.
Will sign off. Please call if you have any question.
Subjective/Objective
Subjective Data
Date of Service: September 07, 2025
The patient is a 64 years old female with a past medical history of hypertension, diabetes mellitus, anxiety, depression, GERD, who presented with complaint of nausea and intractable vomiting that started about 6 days ago prior to admission, but
according the patient it has been going on intermittently for about a year. The patient says that 6 days prior to admission her symptoms of dizziness which she explains as a 'spinning sensation', became worse and symptoms are precipitated by
movement of her head. The patient was seen in the ER at [place] about 6 days ago when the symptoms started, and she was noted to have elevated blood pressure. She was given antiemetic and her blood pressure gradually came down and she was
discharged. The patient symptoms of nausea vomiting and 'spinning sensation' became worse on 09/05/2025 and therefore she presented to the hospital.
. CT head does not show acute intracranial abnormality.
. CTA head/neck does not show a large vessel occlusion.
. MRI brain does not show an acute infarct. There is a moderate-sized central disc herniation at C3/C4 causing mild spinal cord compression and central canal stenosis. There is a small central disc herniation at C4/C5 causing mild spinal cord
compression and central canal stenosis.
. MRI of the cervical spine: Changes of degenerative disc disease, mainly from C3-4 through C6-7. At C4-5, slight compression of the central anterior margin of the spinal cord. No significant overall central canal stenosis is seen throughout the
cervical spine.
The patient presented with a history of dizziness which she explains is like' spinning sensation' along with nausea and vomiting. The patient states that her symptoms have been going on for about a year. The patient symptoms got worse in last 6
days prior to admission therefore she presented to the hospital.
TODAY, the patient still complains of dizziness especially on movement of the head.
Can try meclizine 12.5 mg 3 times daily as needed for vertigo.
Check orthostatic vitals.
Objective Data
Vital Signs
Temp Pulse Resp BP Pulse Ox
37.0 C 86 16 102/62 99
09/07/25 15:00 09/07/25 15:00 09/07/25 15:00 09/07/25 15:00 09/07/25 15:00
Lab Results
09/07/25 07:46
09/07/25 07:46
Sodium 134 mmol/L (135-145) L 09/07/25 07:46
Potassium 3.4 mmol/L (3.5-5.1) L 09/07/25 07:46
BUN 25 mg/dl (7-17) H 09/07/25 07:46
Glucose 138 mg/dl (70-99) H 09/07/25 07:46
Calcium 9.3 mg/dl (8.4-10.2) 09/07/25 07:46
LDL Cholesterol, Calc 67 mg/dl 09/06/25 00:10
Patient Allergies
No Known Allergies Allergy (Verified 09/05/25 16:36)
[2025-09-07 21:27] LABS: Glucose - Point of Care 235 mg/dl (70-99)
[2025-09-07] MEDS: PEPCID 20 MG PO (22:22)
[2025-09-08] VITALS (8 sets, daily range): BP systolic 108–148; BP diastolic 52–73; PULSE 81–94
[2025-09-08] MEDS: ZOFRAN 4 MG IV (00:18)
[2025-09-08] MEDS: TYLENOL 650 MG PO (03:00)
[2025-09-08] MEDS: ANTIVERT 12.5 MG PO (05:51)
[2025-09-08 07:39] LABS: Glucose - Point of Care 145 mg/dl (70-99)
[2025-09-08] MEDS: NOVOLOG FLEXPEN-LOW RESISTANCE SC (07:49)
[2025-09-08 08:20] LABS: Hematocrit 31.7 % (37.0-47.0); Hemoglobin 11.1 g/dL (12.0-16.0); Mean Corp Hgb Conc. 35.0 g/dL (33.0-37.0); Mean Corpuscular Volume 93.0 fL (81.0-99.0); Platelet Count 188 10^3/uL (130-400); Red Cell Dist. Width 11.6 % (11.5-14.5)
[2025-09-08] MEDS: WELLBUTRIN XL (24 hour extended release) 300 MG PO (08:51)
[2025-09-08] MEDS: NORVASC 2.5 MG PO (08:51)
[2025-09-08] MEDS: CRESTOR 5 MG PO (08:51)
[2025-09-08] MEDS: LOW STRENGTH ASPIRIN 81 MG PO (08:51)
[2025-09-08] MEDS: PROTONIX 20 MG PO (08:51)
[2025-09-08 09:11] LABS: Blood Urea Nitrogen 16 mg/dl (7-17); Calcium 9.1 mg/dl (8.4-10.2); Carbon Dioxide 29 mmol/L (22-30); Chloride 102 mmol/L (98-107); Estimated Creatinine Clearance 54 ml/min; Glucose 121 mg/dl (70-99); Potassium 3.8 mmol/L (3.5-5.1); Sodium 134 mmol/L (135-145); eGFR > 60.00
[2025-09-08] MEDS: FIORICET 1 TAB PO (10:52)
--- NOTE | 2025-09-08 11:51 | W.PN.HOSP.TC ---
Today's Communication/Plan
-
check orthostatics
ECHO pending
meclizine prn
start dispo
Assessment / Plan
Assessment / Plan
General: Well Developed, Well Nourished, No Apparent Distress, Comfortable and Conversant; Negative Respiratory Distress
HEENT: Normocephalic, Atraumatic, Nose Appears Normal and Ears Appear Normal; Negative Oxygen
Respiratory: Clear to Auscultation and Non Labored Respirations; Negative Accessory Resp Muscle Use
Cardiac: Regular Rhythm and S1/S2
GI: Soft, Nontender, Nondistended and Normal Bowel Sounds
Skin: Warm and Dry
Neuro: Awake and Alert
Psych: Calm and Intact Judgement/Insight
A/P:
# Nausea/vomiting with vertigo (likely peripheral vertigo)
CTA head and neck shows focal calcification at the junction of the right cavernous ICA and supraclinoid right ICA less than 50% diameter reduction, focal calcification following V4 portion of the left vertebral artery and appears to result in
diameter reduction of approximately 50% which could represent hemodynamically significant stenosis
MRI brain no evidence for acute infarct. There is a moderate-sized central disc herniation at C3/C4 causing mild spinal cord compression and central canal stenosis. There is a small central disc herniation at C4/C5 causing mild spinal cord
compression and central canal stenosis.
PT for vestibular therapy -will need OP therapy.
Aspirin was started, can continue
A1c 6.0%,
LDL 67- cont Crestor
trial of fiorcet to see if it helps.
MRI Cervical spine No significant overall central canal stenosis is seen throughout the cervical spine.
# Hypertensive emergency
# Essential hypertension
s/p IV labetalol, hydralazine as well
Cont POSTER Norvasc with holding parameter
Hold POSTER lisinopril for now
BP stable
# Chest pressure likely secondary to hypertension, Chest pressure has resolved
# Nonischemic myocardial injury secondary to hypertension
Troponin 0.083 -> 0.028,
EKG shows normal sinus rhythm, ST depressions in leads V3
Check echo.
# Type 2 diabetes
On Mounjaro
A1c 6.0%,
Insulin sliding scale
# Hypokalemia secondary to vomiting
replete/monitor
# Likely CKD stage 3
No prior renal function for comparison
Hold lisinopril and monitor
Cr at 1.
# Anxiety/depression
Continue bupropion
# GERD
Continue famotidine, pantoprazole
# Incidental finding of thyroid nodule
On CT: there is a 1 cm calcification within the posterior right lobe of the thyroid gland. Within the anterior right lobe of the thyroid, there is a subtle 6 mm low-density lesion. No significant abnormality of the left lobe of the thyroid gland.
Based on recommendations from the [employer], in a 64-year-old patient with incidentally detected thyroid nodules, no further imaging follow-up is recommended based on the size of these nodules
Full code
DVT prophylaxis�SCDs
Anticipated Discharge: Within 24 hours
Subjective/Interval History
-
Date of Service: September 08, 2025
overnight headache
requesting additional medication
feeling tired
meclizine helped
Objective Data
-
Labs:
Laboratory Results
09/08/25
07:46
WBC 8.7
Hgb 11.1 L
Hct 31.7 L
Plt Count 188
Sodium 134 L
Potassium 3.8
Chloride 102
Carbon Dioxide 29
BUN 16
Creatinine 1.0
Glucose 121 H
Calcium 9.1
Vital Signs:
Vital Signs
Temp Pulse Resp BP Pulse Ox
97.8 F 85 18 122/64 99
09/08/25 07:05 09/08/25 07:05 09/08/25 07:05 09/08/25 07:05 09/08/25 07:05
I&O
09/07/25 09/08/25 09/09/25
06:59 06:59 06:59
Intake Total 1440 / 1440 780 / 780
Output Total 200 / 200
Balance 1240 / 1240 780 / 780
Data Reviewed
-
Total Time Spent with Patient (in minutes): 55
[2025-09-08 11:58] LABS: Glucose - Point of Care 174 mg/dl (70-99)
[2025-09-08] MEDS: NOVOLOG FLEXPEN-LOW RESISTANCE 1 UNITS SC ×2 (12:47→18:16)
[2025-09-08] MEDS: NSS 1000 IV (14:19)
[2025-09-08 16:46] LABS: Glucose - Point of Care 182 mg/dl (70-99)
[2025-09-08] MEDS: PEPCID 20 MG PO (19:50)
[2025-09-08 21:35] LABS: Glucose - Point of Care 134 mg/dl (70-99)
[2025-09-09 03:46] VITALS: BP 112/53
[2025-09-09 08:04] LABS: Glucose - Point of Care 134 mg/dl (70-99)
[2025-09-09] MEDS: NOVOLOG FLEXPEN-LOW RESISTANCE SC ×2 (08:16→17:25)
[2025-09-09] MEDS: CRESTOR 5 MG PO (08:21)
[2025-09-09] MEDS: LOW STRENGTH ASPIRIN 81 MG PO (08:21)
[2025-09-09] MEDS: NORVASC 2.5 MG PO (08:21)
[2025-09-09] MEDS: WELLBUTRIN XL (24 hour extended release) 300 MG PO (08:21)
[2025-09-09] MEDS: PROTONIX 20 MG PO (08:21)
[2025-09-09 08:24] VITALS: BP 121/55
--- NOTE | 2025-09-09 11:31 | W.PN.HOSP.TC ---
Today's Communication/Plan
-
Plan for possible discharge later today
Continue with Norvasc and hold lisinopril
Continue with meclizine as needed
Assessment / Plan
Assessment / Plan
General: Well Developed, Well Nourished, No Apparent Distress, Comfortable and Conversant; Negative Respiratory Distress
HEENT: Normocephalic, Atraumatic, Nose Appears Normal and Ears Appear Normal; Negative Oxygen
Respiratory: Clear to Auscultation and Non Labored Respirations; Negative Accessory Resp Muscle Use
Cardiac: Regular Rhythm and S1/S2
GI: Soft, Nontender, Nondistended and Normal Bowel Sounds
Skin: Warm and Dry
Neuro: Awake and Alert and oriented. Nonfocal grossly intact. No focal deficit noted. Able to move upper and lower extremity without any difficulty.
Psych: Calm and Intact Judgement/Insight
A/P:
# Nausea/vomiting with vertigo (likely peripheral vertigo)
CTA head and neck shows focal calcification at the junction of the right cavernous ICA and supraclinoid right ICA less than 50% diameter reduction, focal calcification following V4 portion of the left vertebral artery and appears to result in
diameter reduction of approximately 50% which could represent hemodynamically significant stenosis
MRI brain no evidence for acute infarct. There is a moderate-sized central disc herniation at C3/C4 causing mild spinal cord compression and central canal stenosis. There is a small central disc herniation at C4/C5 causing mild spinal cord
compression and central canal stenosis.
A1c 6.0%,
LDL 67- cont Crestor
trial of fiorcet to see if it helps.
MRI Cervical spine No significant overall central canal stenosis is seen throughout the cervical spine.
Patient has seen [facility] as outpatient and underwent hearing testing and extensive workup. Recommend to continue follow-up
#Mild orthostatic
Status post IV fluids overnight. Orthos was negative this morning.
# Hypertensive emergency
# Essential hypertension
s/p IV labetalol, hydralazine as well
Cont FINANCIAL SERVICE PROFESSIONAL Norvasc with holding parameter
BP stable
# Chest pressure likely secondary to hypertension, Chest pressure has resolved
# Nonischemic myocardial injury secondary to hypertension
Troponin 0.083 -> 0.028,
EKG shows normal sinus rhythm, ST depressions in leads V3
Echocardiogram with a EF of 60%. Normal biventricular size and function. Normal regional wall motion.
# Type 2 diabetes
On Mounjaro
A1c 6.0%,
Insulin sliding scale
# Hypokalemia secondary to vomiting
replete/monitor
# Likely CKD stage 3
No prior renal function for comparison
Cr at 1.
# Anxiety/depression
Continue bupropion
# GERD
Continue famotidine, pantoprazole
# Incidental finding of thyroid nodule
On CT: there is a 1 cm calcification within the posterior right lobe of the thyroid gland. Within the anterior right lobe of the thyroid, there is a subtle 6 mm low-density lesion. No significant abnormality of the left lobe of the thyroid gland.
Based on recommendations from the [employer], in a 64-year-old patient with incidentally detected thyroid nodules, no further imaging follow-up is recommended based on the size of these nodules
Full code
DVT prophylaxis�SCDs
Anticipated Discharge: Within 24 hours
Subjective/Interval History
-
Date of Service: September 09, 2025
states of ear fullness at times
feeling better this morning
eating breakfast
wants to work with PT today
Objective Data
-
Vital Signs:
Vital Signs
Temp Pulse Resp BP Pulse Ox
99 F 77 18 121/55 100
09/09/25 08:24 09/09/25 08:24 09/09/25 08:24 09/09/25 08:24 09/09/25 08:24
I&O
09/08/25 09/09/25 09/10/25
06:59 06:59 06:59
Intake Total 780 / 780 980 / 980
Balance 780 / 780 980 / 980
[2025-09-09] MEDS: ZOFRAN 4 MG IV (11:34)
[2025-09-09] MEDS: ANTIVERT 12.5 MG PO (11:34)
[2025-09-09 11:43] VITALS: BP 112/60; BP 126/68; BP 94/53; PULSE 86; PULSE 88; PULSE 97
[2025-09-09 11:55] LABS: Glucose - Point of Care 152 mg/dl (70-99)
[2025-09-09] MEDS: NOVOLOG FLEXPEN-LOW RESISTANCE 1 UNITS SC (13:01)
[2025-09-09 15:33] VITALS: BP 124/61
[2025-09-09 17:08] LABS: Glucose - Point of Care 137 mg/dl (70-99)
[2025-09-09 19:31] VITALS: BP 123/67; BP 80/48; BP 98/55; PULSE 80; PULSE 85; PULSE 87
[2025-09-09] MEDS: PEPCID 20 MG PO (23:17)
[2025-09-09 23:51] VITALS: BP 110/47
[2025-09-10 00:12] LABS: Glucose - Point of Care 144 mg/dl (70-99)
[2025-09-10 03:38] VITALS: BP 120/67
[2025-09-10 07:39] VITALS: BP 110/52
[2025-09-10 08:15] LABS: Glucose - Point of Care 216 mg/dl (70-99)
[2025-09-10] MEDS: NOVOLOG FLEXPEN-LOW RESISTANCE 2 UNITS SC (08:44)
[2025-09-10] MEDS: CRESTOR 5 MG PO (08:45)
[2025-09-10] MEDS: NORVASC 2.5 MG PO (08:45)
[2025-09-10] MEDS: PROTONIX 20 MG PO (08:46)
[2025-09-10] MEDS: WELLBUTRIN XL (24 hour extended release) 300 MG PO (08:46)
[2025-09-10 11:13] VITALS: BP 101/48
--- NOTE | 2025-09-10 11:31 | W.PN.HOSP.TC ---
Today's Communication/Plan
-
po meclizine/zofran
OP ENT f/u
Assessment / Plan
Assessment / Plan
General: Well Developed, Well Nourished, No Apparent Distress, Comfortable and Conversant; Negative Respiratory Distress
HEENT: Normocephalic, Atraumatic, Nose Appears Normal and Ears Appear Normal; Negative Oxygen
Respiratory: Clear to Auscultation and Non Labored Respirations; Negative Accessory Resp Muscle Use
Cardiac: Regular Rhythm and S1/S2
GI: Soft, Nontender, Nondistended and Normal Bowel Sounds
Skin: Warm and Dry
Neuro: Awake and Alert and oriented. Nonfocal grossly intact. No focal deficit noted. Able to move upper and lower extremity without any difficulty.
Psych: Calm and Intact Judgement/Insight
A/P:
# Nausea/vomiting with vertigo (likely peripheral vertigo)
CTA head and neck shows focal calcification at the junction of the right cavernous ICA and supraclinoid right ICA less than 50% diameter reduction, focal calcification following V4 portion of the left vertebral artery and appears to result in
diameter reduction of approximately 50% which could represent hemodynamically significant stenosis
MRI brain no evidence for acute infarct. There is a moderate-sized central disc herniation at C3/C4 causing mild spinal cord compression and central canal stenosis. There is a small central disc herniation at C4/C5 causing mild spinal cord
compression and central canal stenosis.
A1c 6.0%,
LDL 67- cont Crestor
trial of fiorcet to see if it helps.
MRI Cervical spine No significant overall central canal stenosis is seen throughout the cervical spine.
Patient has seen [facility] as outpatient and underwent hearing testing and extensive workup. Recommend to continue follow-up.
#Mild orthostatic
Status post IV fluids.
# Hypertensive emergency
# Essential hypertension
s/p IV labetalol, hydralazine as well
Cont HOUSE RN Norvasc with holding parameter
BP stable
# Chest pressure likely secondary to hypertension, Chest pressure has resolved
# Nonischemic myocardial injury secondary to hypertension
Troponin 0.083 -> 0.028,
EKG shows normal sinus rhythm, ST depressions in leads V3
Echocardiogram with a EF of 60%. Normal biventricular size and function. Normal regional wall motion.
# Type 2 diabetes
On Mounjaro
A1c 6.0%,
Insulin sliding scale
# Hypokalemia secondary to vomiting
replete/monitor
# Likely CKD stage 3
No prior renal function for comparison
Cr at 1.
# Anxiety/depression
Continue bupropion
# GERD
Continue famotidine, pantoprazole
# Incidental finding of thyroid nodule
On CT: there is a 1 cm calcification within the posterior right lobe of the thyroid gland. Within the anterior right lobe of the thyroid, there is a subtle 6 mm low-density lesion. No significant abnormality of the left lobe of the thyroid gland.
Based on recommendations from the [employer], in a 64-year-old patient with incidentally detected thyroid nodules, no further imaging follow-up is recommended based on the size of these nodules
Full code
DVT prophylaxis�SCDs
More than 30 minutes spent in discharge including
Final examination of the patient
Summarizing hospital stay
Instructions for continuing care to all relevant caregivers
Preparation of discharge records, prescriptions, and referral forms
Total time spent (in minutes): 53
Anticipated Discharge: Today
Subjective/Interval History
-
Date of Service: September 10, 2025
she was glad to work wtih therapy yesterday
no dizziness this morning
Objective Data
-
Vital Signs:
Vital Signs
Temp Pulse Resp BP Pulse Ox
99.1 F 90 16 110/52 99
09/10/25 07:39 09/10/25 08:45 09/10/25 07:39 09/10/25 08:45 09/10/25 07:39
I&O
09/09/25 09/10/25 09/11/25
06:59 06:59 06:59
Intake Total 980 / 980 480 / 480
Balance 980 / 980 480 / 480
--- NOTE | 2025-09-10 11:33 | W.DCSUMMARY ---
Discharge Summary
Discharge Data
Date of Admission: 09/05/25
Date of Discharge: 09/10/25
-
Pending Results: No
Hospital Course
65 yo F past medical history of diabetes, CKD suspected stage III, anxiety, depression, GERD who is presenting with complaint of nausea, vomiting dizziness and elevated blood pressure. CT angiogram of the head and neck negative for large stenosis.
MRI of the brain was negative for acute infarct. Patient with no other focal neurological deficit. MRI of the cervical spine No significant overall central canal stenosis is seen throughout the cervical spine. Orthostatic vital signs were
initially positive and received IV fluid resuscitation. Blood pressure stabilized. Lisinopril was discontinued. Was tolerating Norvasc. Also had chest pressure and troponin were trended. Underwent echocardiogram with EF of 60%. Normal
biventricular size and function. Normal regional wall motion. Patient with dizziness which was deemed likely secondary to peripheral vertigo. Patient was started on meclizine. Received intermittent Zofran. Patient was tolerating diet. Patient
worked with physical therapy. They are recommending outpatient vestibular therapy. She was also recommended to follow-up outpatient with the ENT for second opinion. Patient says she has been following with ENT closer to home extensively and
underwent hearing testing and additional testing which was found to be normal. Recommend to follow-up with different ENT for second opinion if she desires. Neurology also evaluated the patient and recommended meclizine as prescribed to the patient
on discharge.
Discharge Plan
-
Patient Disposition: Home (Routine Discharge)
Discharge Diagnosis/Procedures: Vertigo
Hypertension emergency
Orthostatic hypotension
Chest pain
Condition: Fair
Diet: As tolerated
Activity: As tolerated
Driving Restrictions: Not until seen by your Dr
Other Services: PT
Activity Restrictions/Additional Instructions:
Follow-up with your primary ENT physician.
Referrals:
Kenneth Henson MD [Active, Otology]
UNKNOWN - PT NOT,INTERVIEWE [Family Provider, Internal Medicine] - in less than 1 week
Additional Discharge Medication Instructions: lisinopril was discontinued.
Prescriptions:
New
meclizine 12.5 mg Tablet
12.5 mg PO Q8HPRN PRN (Reason: vertigo/dizziness) Qty: 20 0RF
Continued
amlodipine 2.5 mg Tablet
2.5 mg PO DAILY
ondansetron 4 mg Tablet,Disintegrating
4 mg PO Q6H PRN (Reason: nausea)
cyclobenzaprine 5 mg Tablet
5 mg PO TIDPRN PRN (Reason: muscle spasm)
rosuvastatin [Crestor] 5 mg Tablet
5 mg PO DAILY
bupropion HCl 300 mg Tablet Extended Release 24 Hr
300 mg PO DAILY
Mounjaro 10 mg/0.5 mL Pen Injector
10 mg SC WE@0800
pantoprazole 20 mg Tablet,Delayed Release (Dr/Ec)
20 mg PO DAILY Qty: 30 0RF
famotidine 20 mg Tablet
20 mg PO HS Qty: 30 0RF
Discontinued
lisinopril 5 mg Tablet
5 mg PO DAILY
Discharge Orders:
Discharge Patient (As Directed); Ordered 09/10/25
Ordered By: Lj Kramer
Discharge Date and Time
Discharge Date/Time: 09/10/25 14:11
Print Language: BENGALI
--- NOTE | 2025-09-10 12:06 | CM ---
CM met with patient to complete IA. She lives with her father in a multistory home with 7 entry steps. No DME or VN in the past.
Recommendation from therapy is for outpatient therapy follow up.
Plan: Discharge to home with outpatient therapy at agency of patient choice.
[2025-09-10 12:22] LABS: Glucose - Point of Care 157 mg/dl (70-99)
[2025-09-10] MEDS: NOVOLOG FLEXPEN-LOW RESISTANCE 1 UNITS SC (12:26)
== END 2025-09-10 14:11 | disposition home or self-care (01) | DRG 305 ==
LOC: 4 EAST ACU 20:34
PROVIDERS: Emergency Medicine; Internal Medicine; ADMITTING PHYSICIAN Hospitalist; ATTENDING PHYSICIAN Hospitalist; CONSULT PHYSICIAN Psychiatry & Neurology Neurology; EMERGENCY PHYSICIAN Emergency Medicine
DX: I16.1 Hypertensive emergency (principal); I5A Non-ischemic myocardial injury (non-traumatic); N17.9 Acute kidney failure, unspecified; M50.01 Cervical disc disorder with myelopathy, high cervical region; M50.021 Cervical disc disorder at C4-C5 level with myelopathy; H81.399 Other peripheral vertigo, unspecified ear; E11.22 Type 2 diabetes mellitus with diabetic chronic kidney disease; M48.02 Spinal stenosis, cervical region; I12.9 Hypertensive chronic kidney disease with stage 1 through stage 4 chronic kidney disease, or unspecified chronic kidney disease; N18.30 Chronic kidney disease, stage 3 unspecified; I95.1 Orthostatic hypotension; F41.9 Anxiety disorder, unspecified; F32.A Depression, unspecified; E04.1 Nontoxic single thyroid nodule; K21.9 Gastro-esophageal reflux disease without esophagitis; E11.65 Type 2 diabetes mellitus with hyperglycemia; E87.6 Hypokalemia; Z90.49 Acquired absence of other specified parts of digestive tract; Z79.85 Long-term (current) use of injectable non-insulin antidiabetic drugs
CPT/HCPCS: 70496; 70498; 70551; 71046; 72141; 80048; 80053; 80061; 82962; 83036; 83690; 83735; 84484; 85025; 85027; 93005; 93306; 96374; 96375; 97110; 97112; 97116; 97163; 97530; 99285; Q9967